=== PATIENT | female | born 1945 | race Caucasian/White ===

== ENCOUNTER → 2017-03-18 | Outpatient (CLI) | payer MEDICARE, BC ==
[~2017-03-18] MED LIST: 00186-0370-20 IH; ALLEGRA 180MG180 MG PO; ALLI PO; ARIMIDEX1 MG PO; ATORVASTATIN PO; BETAPACE 120MG120 MG PO; BETAPACE 80MG80 MG PO; CETIRIZINE PO; COLACE 100100 MG/CAP PO; COUMADIN 5MG5 MG/TAB PO; COUMADIN 77.5 MG/TAB PO; CRANBERRY1 CAP PO; DETROL LA4 MG PO; DETROL PO; DITROPAN 5MG TAB5 MG PO; DOXYCYCLINE 10100 MG PO; ELIQUIS 2.5 PO; FERROUS SU325 MG/TAB PO; FLONASEALLERGY NS; FOLIC ACID 40400 MCG PO; GLUCOSAMINE & C1 CA1 PO; GLUCOSAMINE PO; HCTZ12.5TAB PO; IMDUR 30MG30 MG/TAB PO; INDERAL PO; LIPITOR 40MG TA40 MG PO; LOVENOX 3030 MG/0.3 SQ; LYRICA75 MG PO; MULTIPLE VITAMI1 CAP PO; NEXIUM 40MG40 MG PO; NEXIUM PO; NEXIUM40 MG PO; NITRO-DUR0.4 MG/PAT TD; NORCO 325 MG-7.1 TAB PO; OYSTER CALCIUM500 M1 PO; PREDNISONE10 MG PO; PREDNISONE20 MG PO; PROAIR HFA0.09 MG/AC IH; RYBIX ODT50 MG PO; SINGULAIR 110 MG/TAB PO; THERAGRAN1 TA1 PO; TRAMADOL PO; TUSS PO; TYLENOL ARTHRI650 M1 PO; ULTRAM 50MG TAB50 MG PO; ULTRAM50 MG PO; VESICARE 5MG5 MG PO; VESICARE10 MG PO; VITAMIN C BUFF500 MG PO; ZITHROMAX 250M250 MG PO; [UNRECOGNIZED DRUG - OTHER] PO; [UNRECOGNIZED DRUG - OTHER] PO
== END ==
LOC: MC.RAD 08:20
DX: Z12.31 Encounter for screening mammogram for malignant neoplasm of breast (principal)

== ENCOUNTER 2017-05-21 06:39 | Emergency (ER) | payer MEDICARE, BC ==
[~2017-05-21] VITALS: Ht 175.3 cm; Wt 87.3 kg
[~2017-05-21 06:39] MED LIST changes: -ELIQUIS 2.5 PO
[2017-05-21 06:42] VITALS: BP 128/77; TEMP 98.1
[2017-05-21] MEDS ORDERED: ELIQUIS 2.5 PO (06:57)
[2017-05-21 07:30] LABS: BASO # 0.1 (0.0-0.2); BASO % 1.3 % (0.0-2.0); EOS # 0.3 (0.0-0.7); EOS % 3.5 % (0-4.0); GRAN # 5.2 (1.4-6.5); GRAN % 59.8 % (42.2-75.2); HEMATOCRIT 43.6 % (37.0-47.0); HEMOGLOBIN 14.4 g/dl (12.5-16.0); LYMPH # 2.2 (1.2-3.4); LYMPH % 25.8 % (20.0-51.0); MEAN CELL VOLUME 95 fl (80.0-100.0); MEAN CORPUSCULAR HEMOGLOBIN 31 pg (27.0-31.0); MEAN CORPUSCULAR HGB CONC 33 g/dl (33.0-37.0); MEAN PLATELET VOLUME 9.9 fl (7.4-10.4); MONO # 0.8 (0.1-0.6); PLATELET COUNT 254 K/mm3 (130-400); RED BLOOD COUNT 4.59 M/mm3 (4.10-5.30); REDCELL DISTRIBUTION WIDTH-CV 12.4 % (11.5-14.5); WHITE BLOOD COUNT 8.6 K/mm3 (4.8-10.8)
[2017-05-21 07:44] LABS: INR 1.1 (0.8-3.0); PROTHROMBIN TIME 12.5 SECONDS (9.7-12.8)
[2017-05-21 07:47] LABS: ADJUSTED CALCIUM 9.3 mg/dL (8.4-10.2); ALBUMIN 3.9 gm/dL (3.5-5.0); BILIRUBIN,TOTAL 0.6 mg/dL (0.0-1.0); CALCIUM 9.2 mg/dL (8.4-10.2); CREATININE, serum 0.63 mg/dL (0.52-1.25); PARTIAL THROMBOPLASTIN TIME 33.7 SECONDS (26.0-37.0); POTASSIUM 4.1 mmol/L (3.4-5.0); TOTAL PROTEIN 6.8 gm/dL (6.4-8.2)
[2017-05-21 08:24] VITALS: PULSE 86
== END 2017-05-21 08:24 | disposition home or self-care (01) ==
LOC: COL.ER 06:39
PROVIDERS: Emergency Medicine
DX: K92.2 Gastrointestinal hemorrhage, unspecified (principal); I48.91 Unspecified atrial fibrillation; I10 Essential (primary) hypertension; I25.10 Atherosclerotic heart disease of native coronary artery without angina pectoris; Z79.01 Long term (current) use of anticoagulants; Z90.710 Acquired absence of both cervix and uterus; Z90.49 Acquired absence of other specified parts of digestive tract; Z98.890 Other specified postprocedural states
CPT/HCPCS: J7030

== ENCOUNTER → 2018-04-28 | Outpatient (CLI) | payer MEDICARE, BC ==
[~2018-04-28] MED LIST changes: +ELIQUIS 2.5 PO
== END ==
LOC: MC.RAD 04-14 10:00
DX: Z12.31 Encounter for screening mammogram for malignant neoplasm of breast (principal); C50.412 Malignant neoplasm of upper-outer quadrant of left female breast

== ENCOUNTER 2018-10-11 07:22 | Emergency (ER) | payer MEDICARE, BC ==
[~2018-10-11] VITALS: Ht 175.3 cm; Wt 83.6 kg
[2018-10-11 07:26] VITALS: BP 129/81; TEMP 100.2
[2018-10-11] MEDS ORDERED: CRESTOR40 MG PO (08:00)
[2018-10-11] MEDS ORDERED: ZITHROMAX Z PA250 MG PO (08:17)
[2018-10-11 08:28] VITALS: PULSE 92
== END 2018-10-11 08:29 | disposition home or self-care (01) ==
LOC: COL.ER 07:22
DX: J02.9 Acute pharyngitis, unspecified (principal); J44.9 Chronic obstructive pulmonary disease, unspecified; I48.91 Unspecified atrial fibrillation; Z87.891 Personal history of nicotine dependence; Z79.01 Long term (current) use of anticoagulants

== ENCOUNTER → 2019-05-12 | Outpatient (CLI) | payer MEDICARE, BC ==
[~2019-05-12] MED LIST changes: +CRESTOR40 MG PO; +ZITHROMAX Z PA250 MG PO
== END ==
LOC: MC.RAD 09:00
DX: Z12.31 Encounter for screening mammogram for malignant neoplasm of breast (principal); C50.412 Malignant neoplasm of upper-outer quadrant of left female breast

== ENCOUNTER → 2019-09-09 | Outpatient (CLI) | payer MEDICARE, BC | LOC: COL.RAD 11:08 | DX: N30.10 Interstitial cystitis (chronic) without hematuria (principal) ==

== ENCOUNTER → 2020-05-24 | Outpatient (CLI) | payer MEDICARE, BC | LOC: MC.RAD 09:37 | DX: Z12.31 Encounter for screening mammogram for malignant neoplasm of breast (principal); Z85.3 Personal history of malignant neoplasm of breast ==

== ENCOUNTER 2020-09-18 07:47 | Emergency (ER) | payer MEDICARE, BC ==
[~2020-09-18] VITALS: Ht 175.3 cm; Wt 87.3 kg
[2020-09-18 07:55] VITALS: TEMP 97.4
[2020-09-18] MEDS ORDERED: ONE-A-DAY ESSE1 EACH PO (08:09)
[2020-09-18] MEDS ORDERED: BREO ELLIPTA 21 EACH IH (08:11)
[2020-09-18 08:34] LABS: COLLECTION METHOD CLEAN CATCH
[2020-09-18 08:39] LABS: BASO # 0.1 (0.0-0.2); BASO % 0.7 % (0.0-2.0); EOS # 0.2 (0.0-0.7); EOS % 1.8 % (0-4.0); GRAN # 7.9 (1.4-6.5); GRAN % 67.2 % (42.2-75.2); HEMATOCRIT 47.8 % (37.0-47.0); HEMOGLOBIN 15.6 g/dl (12.5-16.0); LYMPH # 2.6 (1.2-3.4); LYMPH % 21.6 % (20.0-51.0); MEAN CELL VOLUME 97 fl (80.0-100.0); MEAN CORPUSCULAR HEMOGLOBIN 32 pg (27.0-31.0); MEAN CORPUSCULAR HGB CONC 33 g/dl (33.0-37.0); MEAN PLATELET VOLUME 10.1 fl (7.4-10.4); MONO # 0.9 (0.1-0.6); MONO % 7.6 % (1.7-9.3); PLATELET COUNT 294 K/mm3 (130-400); RED BLOOD COUNT 4.94 M/mm3 (4.10-5.30); REDCELL DISTRIBUTION WIDTH-CV 13.8 % (11.5-14.5)
[2020-09-18 08:47] LABS: MUCOUS Present /lpf; PH 6 (5-8); SQUAMOUS EPITHELIAL 0-2 /hpf; URINE APPEARANCE Hazy; URINE BACTERIA None Seen /hpf; URINE BILIRUBIN Negative (NEGATIVE); URINE BLOOD Negative (NEGATIVE); URINE COLOR Yellow; URINE GLUCOSE Negative (NEGATIVE); URINE KETONE Negative (NEGATIVE); URINE LEUKOCYTE ESTERASE 1+ (NEGATIVE); URINE NITRATE Negative (NEGATIVE); URINE PROTEIN(semi-quant) Negative (NEGATIVE); URINE UROBILINOGEN Negative (NEGATIVE)
[2020-09-18 08:49] LABS: ALBUMIN 4.3 gm/dL (3.5-5.0); BILIRUBIN,TOTAL 0.7 mg/dL (0.0-1.0); C-REACTIVE PROTEIN 0.6 mg/dL (0.0-0.9); CALCIUM 9.3 mg/dL (8.4-10.2); CREATININE, serum 0.54 (0.52-1.25); TOTAL PROTEIN 7.5 gm/dL (6.4-8.2)
[2020-09-18 08:52] LABS: INR 1.1 (0.8-3.0); PROTHROMBIN TIME 12.6 SECONDS (9.7-12.8)
[2020-09-18 08:55] LABS: PARTIAL THROMBOPLASTIN TIME 32.4 SECONDS (26.0-37.0)
[2020-09-18] MEDS ORDERED: NORCO 325 MG-51 TAB PO ×3 (11:09→11:12)
[2020-09-18] MEDS ORDERED: CEFTIN500 MG PO (11:09)
[2020-09-18 12:04] VITALS: BP 135/90; PULSE 89
[2020-09-21] MEDS ORDERED: SEPTRA DS 8001 TAB PO (14:25)
== END 2020-09-18 12:05 | disposition home or self-care (01) ==
LOC: COL.ER 07:47
PROVIDERS: Emergency Medicine
DX: N12 Tubulo-interstitial nephritis, not specified as acute or chronic (principal); M54.5 Low back pain; I48.91 Unspecified atrial fibrillation; Z79.01 Long term (current) use of anticoagulants; W01.0XXA Fall on same level from slipping, tripping and stumbling without subsequent striking against object, initial encounter
CPT/HCPCS: A9284; J0696; J1170; J7030; Q9967

== ENCOUNTER → 2022-06-19 | Outpatient (CLI) | payer MEDICARE, BC ==
[~2022-06-19] MED LIST changes: +BREO ELLIPTA 21 EACH IH; +CEFTIN500 MG PO; +NORCO 325 MG-51 TAB PO; +ONE-A-DAY ESSE1 EACH PO; +SEPTRA DS 8001 TAB PO
== END ==
LOC: MC.RAD 09:14
DX: Z12.31 Encounter for screening mammogram for malignant neoplasm of breast (principal); Z85.3 Personal history of malignant neoplasm of breast